=== PATIENT | male | born 1930 | race African-American/Black ===

== ENCOUNTER 2018-05-18 09:49 | Emergency (ER) | payer OTHER ==
[~2018-05-18] VITALS: Ht 142.2 cm; Wt 56.0 kg
[~2018-05-18 09:49] MED LIST: ASPI-1160; CARV12.545 PO; LISI40TA4 PO
[2018-05-18 11:52] LABS: CHLORIDE 99 mEq/L (98-107)
[2018-05-18 11:53] LABS: BASOPHILS % 0.7 % (0.0-2.0); EOSINOPHILS % 2.4 % (0.0-5.0); HEMATOCRIT. 33.2 % (42.0-52.0); HEMOGLOBIN. 10.8 g/dL (14.0-18.0); LYMPHOCYTES % 13.7 % (20.0-50.0); MEAN CORPUSCULAR VOLUME 85.8 fL (80.0-94.0); MEAN PLATELET VOLUME 7.6 fl (7.4-10.4); MONOCYTES % 11.1 % (2.0-8.0); NEUTROPHILS % 72.1 % (40.0-76.0); PLATELET 253 x1000/uL (130-400); RED BLOOD CELL COUNT 3.87 mill/uL (4.7-6.1); RED CELL DISTRIBUTION WIDTH 19.8 % (11.6-14.6)
[2018-05-18 11:54] LABS: INR 1.2; PROTHROMBIN TIME 11.7 sec (9.1-11.1)
[2018-05-18 11:58] LABS: PHOSPHORUS 4.6 mg/dL (2.5-4.9)
[2018-05-18 13:30] VITALS: BP 133/40
== END 2018-05-18 14:20 | disposition short-term general hospital (02) ==
LOC: ER 10:34 → CANBEDREQ 21:22
DX: G92 Toxic encephalopathy (principal); I12.0 Hypertensive chronic kidney disease with stage 5 chronic kidney disease or end stage renal disease; E11.22 Type 2 diabetes mellitus with diabetic chronic kidney disease; N18.6 End stage renal disease; N17.9 Acute kidney failure, unspecified; Z99.2 Dependence on renal dialysis; Z79.82 Long term (current) use of aspirin
CPT/HCPCS: 36415; 71045; 82962; 83735; 84100; 84484; 93005; 99285